=== PATIENT | male | born 1995 | race Hispanic/Latino ===

== ENCOUNTER 2017-10-28 09:30 | Emergency (ER) | payer SELFPAY ==
[~2017-10-28] VITALS: Ht 172.7 cm; Wt 60.0 kg
[2017-10-28 10:43] LABS: URINE BILIRUBIN - DIPSTICK NEGATIVE (NEGATIVE); URINE BLOOD DIPSTICK NEGATIVE (NEGATIVE); URINE COLOR YELLOW; URINE GLUCOSE - DIPSTICK NEGATIVE (NEGATIVE); URINE KETONE TRACE mg/dL (NEGATIVE); URINE LEUK ESTERASE NEGATIVE (NEGATIVE); URINE NITRITE - DIPSTICK NEGATIVE (Negative); URINE PROTEIN - DIPSTICK NEGATIVE (NEG-TRACE); URINE SPECIFIC GRAVITY 1.025; URINE UROBILINOGEN - DIPSTICK 0.2 E.U./dL (0.2)
[2017-10-28 10:44] LABS: URINE CLARITY CLEAR
[2017-10-28 11:05] VITALS: BP 135/80
== END 2017-10-28 11:30 | disposition home or self-care (01) | DRG 951 ==
LOC: ED 09:30
PROVIDERS: Family Medicine
DX: Z20.2 Contact with and (suspected) exposure to infections with a predominantly sexual mode of transmission (principal)

== ENCOUNTER 2017-11-29 13:57 | Emergency (ER) | payer SELFPAY ==
[~2017-11-29] VITALS: Ht 172.7 cm; Wt 56.0 kg
[2017-11-29] MEDS ORDERED: CIPROFLOXACN500 MG PO (14:22)
[2017-11-29] MEDS ORDERED: BENTYL10 MG PO (14:22)
[2017-11-29] MEDS ORDERED: ZOFRAN4 MG/TAB PO (14:22)
[2017-11-29 14:26] VITALS: BP 115/74
== END 2017-11-29 14:40 | disposition home or self-care (01) | DRG 392 ==
LOC: ED 13:57
DX: R19.7 Diarrhea, unspecified (principal)